=== PATIENT | male | born 1945 | race Caucasian/White ===

== ENCOUNTER → 2023-04-14 15:06 | Outpatient (REF) | payer MEDICARE, OTHER, SELFPAY | LOC: DHCBC MAIN 15:06 | PROVIDERS: ATTENDING PHYSICIAN Internal Medicine; FAMILY PHYSICIAN Family Medicine | DX: I39 Endocarditis and heart valve disorders in diseases classified elsewhere (principal) | CPT/HCPCS: 93306 ==

== ENCOUNTER → 2023-06-15 15:57 | Outpatient (REF) | payer MEDICARE, OTHER, SELFPAY | LOC: RAD 15:57 | PROVIDERS: ATTENDING PHYSICIAN Internal Medicine Rheumatology; FAMILY PHYSICIAN Family Medicine | DX: M35.3 Polymyalgia rheumatica (principal); M60.9 Myositis, unspecified; M79.18 Myalgia, other site | CPT/HCPCS: 71250 ==

== ENCOUNTER → 2023-08-30 16:29 | Outpatient (REF) | payer MEDICARE, OTHER, SELFPAY ==
[2023-08-30 16:54] LABS: % Basophils 0.4 % (0-2); % Eosinophils 1.7 % (0-6); % Immature Granulocytes 0.3 % (0-0.5); % Lymphocytes 30.8 % (20.5-51.1); % Monocytes 9.1 % (1.7-9.3); % Neutrophils 57.7 % (42.2-75.2); Absolute Eosinophils 0.1 10^3/uL (0-0.7); Absolute Lymphocytes 2.4 10^3/uL (1.2-3.4); Absolute Monocytes 0.7 10^3/uL (0.1-0.6); Absolute Neutrophils 4.4 10^3/uL (1.4-6.5); Hematocrit 41.5 % (39.0-52.0); Hemoglobin 14.3 g/dL (13.0-18.0); Mean Corp Hgb Conc. 34.5 g/dL (33.0-37.0); Mean Corpuscular Hgb 33.2 pg (27.0-31.0); Mean Corpuscular Volume 96.3 fL (80.0-94.0); Mean Platelet Volume 9.7 fL (7.4-10.4); Nucleated Red Blood Cells % 0 % (-); Platelet Count 288 10^3/uL (130-400); Red Blood Cell Count 4.31 10^6/uL (4.70-6.10); Red Cell Dist. Width 13.9 % (11.5-14.5); White Blood Cell Count 7.7 10^3/uL (4.8-10.8)
[2023-08-30 17:11] LABS: ALT (SGPT) 31 U/L (0-50); AST (SGOT) 37 U/L (17-59); Albumin 4.7 g/dl (3.5-5.0); Alkaline Phosphatase 66 U/L (38-126); Blood Urea Nitrogen 11 mg/dl (9-20); Calcium 9.4 mg/dl (8.4-10.2); Carbon Dioxide 26 mmol/L (22-30); Chloride 100 mmol/L (98-107); Glucose 93 mg/dl (70-99); Potassium 4.3 mmol/L (3.5-5.1); Sodium 135 mmol/L (135-145); Total Bilirubin 0.7 mg/dl (0.2-1.3); Total Protein 7.3 g/dl (6.3-8.2); eGFR > 60.00
== END ==
LOC: REG 16:29
PROVIDERS: ATTENDING PHYSICIAN Nurse Practitioner Adult Health
DX: R10.84 Generalized abdominal pain (principal); K57.92 Diverticulitis of intestine, part unspecified, without perforation or abscess without bleeding
CPT/HCPCS: 36415; 74177; 80053; 85025; Q9967

== ENCOUNTER → 2023-09-19 08:51 | Outpatient (REF) | payer MEDICARE, OTHER, SELFPAY | LOC: RAD 08:51 | PROVIDERS: ATTENDING PHYSICIAN Family Medicine | DX: R10.84 Generalized abdominal pain (principal) | CPT/HCPCS: 74240; 74248 ==

== ENCOUNTER → 2023-09-23 06:37 | Outpatient (REF) | payer MEDICARE, OTHER, SELFPAY | LOC: RAD 06:37 | PROVIDERS: ATTENDING PHYSICIAN Internal Medicine Rheumatology; FAMILY PHYSICIAN Family Medicine | DX: H50.6 Mechanical strabismus (principal); L02.211 Cutaneous abscess of abdominal wall; M79.18 Myalgia, other site | CPT/HCPCS: 74150 ==

== ENCOUNTER → 2023-11-30 09:12 | Outpatient (REF) | payer MEDICARE, OTHER, SELFPAY | LOC: RCS 09:12 | PROVIDERS: ATTENDING PHYSICIAN Internal Medicine; FAMILY PHYSICIAN Family Medicine | DX: I49.1 Atrial premature depolarization (principal); I49.3 Ventricular premature depolarization | CPT/HCPCS: 93225; 93226 ==

== ENCOUNTER → 2024-01-21 09:34 | Outpatient (REF) | payer MEDICARE, OTHER, SELFPAY ==
[2024-01-21 10:35] LABS: ALT (SGPT) 46 U/L (0-50); AST (SGOT) 28 U/L (17-59); Albumin 4.4 g/dl (3.5-5.0); Alkaline Phosphatase 61 U/L (38-126); Blood Urea Nitrogen 17 mg/dl (9-20); Calcium 9.1 mg/dl (8.4-10.2); Carbon Dioxide 28 mmol/L (22-30); Chloride 101 mmol/L (98-107); Glucose 95 mg/dl (70-99); HDL Cholesterol 48 mg/dl; LDL Cholesterol, Calculated 42 mg/dl; Potassium 4.2 mmol/L (3.5-5.1); Sodium 140 mmol/L (135-145); Total Bilirubin 0.7 mg/dl (0.2-1.3); Total Cholesterol 129 mg/dl (50-199); Total Protein 7.2 g/dl (6.3-8.2); Triglyceride 196 mg/dl (10-149); Very Low Density Lipoprotein 39 mg/dl (0-30); eGFR > 60.00
== END ==
LOC: REG 09:34
PROVIDERS: ATTENDING PHYSICIAN Family Medicine
DX: E78.5 Hyperlipidemia, unspecified (principal); Z13.1 Encounter for screening for diabetes mellitus
CPT/HCPCS: 36415; 80053; 80061

== ENCOUNTER 2024-03-02 15:38 | Emergency (ER) | payer MEDICARE, OTHER, SELFPAY ==
[2024-03-02 15:46] VITALS: BP 152/77
--- NOTE | 2024-03-02 15:59 | ED.GENMED ---
ED Provider Triage
<Alexandr Merritt PA-C - Last Filed: 03/02/24 16:05>
-
Patient seen by provider in Triage?: Seen in Triage
79-year-old male with history of coronary artery disease has stents and bypass surgery on Eliquis. History of A-fib. Presents with chest pain. He notes a substernal pain. He denies any vomiting
Vital signs stable through triage. EKG shows sinus rhythm. Will check labs and chest x-ray.
Seen by provider in triage. Warrants further assessment
History of Present Illness
<Alexandr Merritt PA-C - Last Filed: 03/02/24 16:05>
General
Chief Complaint: Chest Pain
Time Seen by Provider: 03/02/24 20:44
<Valdemar Felix Jr., PA-C - Last Filed: 03/02/24 21:24>
General
Source: patient
Exam Limitations: none
Nursing documentation reviewed up to this point in time: agreed with
History of Present Illness
History of Present Illness:
79-year-old male past medical history of CAD hypertension thyroid disorder presenting to the emergency department today with concerns of chest discomfort across his chest. Has been going on all day no associated symptoms. Does have a history of
costochondritis. Also has a history of fibromyalgia. Put IcyHot throughout on his chest last night thinks he may have had some burn to his chest secondary to this.
Past History
<Alexandr Merritt PA-C - Last Filed: 03/02/24 16:05>
Past History
ED Past Medical History: CAD, Hypercholesterolemia and Other (Hiatal hernia, fibromyalgia)
ED Past Surgical History: Negative Cardiac
Social History
Tobacco: Former smoker
Alcohol: None
Drug: None
Personal:
Living: with family
Employment: Retired
Family History
Family History: Other (Noncontributory)
Review of Systems
<Valdemar Felix Jr., PA-C - Last Filed: 03/02/24 21:24>
Review of Systems
Allergies reviewed?: Yes
All Other Systems: ROS reviewed and negative except as documented in HPI and ROS
Phy Exam
<Valdemar Felix Jr., PA-C - Last Filed: 03/02/24 21:24>
Physical Exam
Physical Exam:
GENERAL: Alert , in no apparent distress
EYE: pupils equal and reactive
NECK: Supple, no significant adenopathy.
ENT: o/p clr, mmm.
CARDIAC: Redness and irritation to the chest wall no fluctuance or induration regular rate and rhythm .
LUNGS: Clear breath sounds bilaterally, no acute respiratory distress, no wheezes/rales/rhonchi
ABDOMEN: Soft, without focal tenderness, no r/g, no cvat
NEUROLOGICAL: Alert and oriented, no focal neuro deficits
SKIN: Warm and dry, skin intact.
MUSCULOSKELETAL: No edema, well perfused.
PSYCH: Normal and appropriate interaction.
Scores
<aVldemar Felix Jr., PA-C - Last Filed: 03/02/24 21:24>
Heart Score for Chest Pain Patients
STEMI patient?: No
History: Slightly or Non-Suspicious
ECG: Normal
Age: >/= 65 years
Risk Factors: >/= 3 Risk Factors or History of CAD
Troponin: </= Normal Limit
Heart Score for Chest Pain Patients: 4
Heart Score Risk: 20.3% MACE over next 6 weeks
Course
<Alexandr Merritt PA-C - Last Filed: 03/02/24 16:05>
Orders/Labs/Results
Orders:
Orders
03/02/24 15:39
Electrocardiogram (*1) Urgent
Reason for Study: Chest Pain
EKG- Treatment ONCE
03/02/24 15:59
CR Chest - 2 Views Urgent
Comment:
Reason For Exam: chest pain
03/02/24 16:11
Complete Blood Count/With Diff Urgent
Comprehensive Metabolic Panel Urgent
Lipase Urgent
Troponin I Urgent
03/02/24 19:11
Troponin I Urgent
Abnormal Lab Results
03/02/24
16:11
RBC 4.02 L 10^6/uL
(4.70-6.10)
MCV 97.3 H fL
(80.0-94.0)
MCH 33.1 H pg
(27.0-31.0)
Abs Immat Gran (auto) 0.1 H 10^3/uL
(0-0.05)
Absolute Neuts (auto) 7.6 H 10^3/uL
(1.4-6.5)
Absolute Monos (auto) 0.7 H 10^3/uL
(0.1-0.6)
Lymphocytes % 18.0 L %
(20.5-51.1)
Glucose 116 H mg/dl
(70-99)
03/02/24 16:11
03/02/24 16:11
Vital Signs
Initial and Last Documented VS:
Initial Vital Signs
Temp Pulse Resp BP Pulse Ox
97.8 F 92 18 152/77 98
03/02/24 15:46 03/02/24 15:46 03/02/24 15:46 03/02/24 15:46 03/02/24 15:46
Last Documented Vital Signs
Temp Pulse Resp BP Pulse Ox
97.8 F 92 18 152/77 98
03/02/24 15:46 03/02/24 15:46 03/02/24 15:46 03/02/24 15:46 03/02/24 15:46
<Valdemar Felix Jr., PA-C - Last Filed: 03/02/24 21:24>
Orders/Labs/Results
Orders:
Orders
03/02/24 15:39
Electrocardiogram (*1) Urgent
Reason for Study: Chest Pain
EKG- Treatment ONCE
03/02/24 15:59
CR Chest - 2 Views Urgent
Comment:
Reason For Exam: chest pain
03/02/24 16:11
Complete Blood Count/With Diff Urgent
Comprehensive Metabolic Panel Urgent
Lipase Urgent
Troponin I Urgent
03/02/24 19:11
Troponin I Urgent
Abnormal Lab Results
03/02/24
16:11
RBC 4.02 L 10^6/uL
(4.70-6.10)
MCV 97.3 H fL
(80.0-94.0)
MCH 33.1 H pg
(27.0-31.0)
Abs Immat Gran (auto) 0.1 H 10^3/uL
(0-0.05)
Absolute Neuts (auto) 7.6 H 10^3/uL
(1.4-6.5)
Absolute Monos (auto) 0.7 H 10^3/uL
(0.1-0.6)
Lymphocytes % 18.0 L %
(20.5-51.1)
Glucose 116 H mg/dl
(70-99)
03/02/24 16:11
03/02/24 16:11
Vital Signs
Initial and Last Documented VS:
Initial Vital Signs
Temp Pulse Resp BP Pulse Ox
97.8 F 92 18 152/77 98
03/02/24 15:46 03/02/24 15:46 03/02/24 15:46 03/02/24 15:46 03/02/24 15:46
Last Documented Vital Signs
Temp Pulse Resp BP Pulse Ox
97.8 F 92 18 152/77 98
03/02/24 15:46 03/02/24 15:46 03/02/24 15:46 03/02/24 15:46 03/02/24 15:46
<Valdemar Felix Jr., PA-C - Last Filed: 03/02/24 21:24>
MDM/Problems Addressed
MDM/Problems Addressed:
79-year-old male presenting to the emergency department today with concerns of chest pain throughout the day today. Upon arrival here blood pressure slightly elevated otherwise vital signs are normal. Labs unremarkable troponin negative twice EKG
without emergent changes chest x-ray normal. On assessment patient does have some redness and irritation to the chest wall. Patient claims he was a large amount of IcyHot last night caused a mild burn. This could be explaining his symptoms. No
signs of emergent process advised her close outpatient follow-up. Return precautions given.
<Valdemar Felix Jr., PA-C - Last Filed: 03/02/24 21:24>
*Critical Care Note
Total Time (30-74mins, 75-104mins- exclusive of procedures): Not Applicable
ED Attending Note
<Alexandr Merritt PA-C - Last Filed: 03/02/24 16:05>
-
Portions of this chart may have been created with voice recognition software.� Occasional wrong word or��sound alike� substitutions may have occurred due to the inherent limitations of voice recognition software.
Discharge Plan
Departure
Patient Disposition: Home (Routine Discharge)
Date of Disposition: 03/02/24
Time of Disposition: 21:06
Patient with high blood pressure during this ER visit?: No
Condition: Good
Covid-19: Not Applicable
Discharge Problem:
Chest pain
Instructions: Chest Pain CBC Follow Up
Prescriptions:
No Action
loratadine 10 MG tablet
10 mg PO PRN PRN (Reason: ALLERGIES)
rosuvastatin 5 MG tablet
2.5 mg PO DAILY
aspirin 81 MG tablet,delayed release (DR/EC)
81 mg PO DAILY
alprazolam [Xanax] 0.25 MG tablet
0.25 mg PO DAILY PRN (Reason: ANXIETY)
docosahexaenoic acid-epa 1 CAP capsule
1 cap PO DAILY
escitalopram oxalate 10 MG tablet
10 mg PO DAILY Qty: 30 0RF
cyclobenzaprine 10 MG tablet
10 mg PO TIDPRN PRN (Reason: severe muscle pain) Qty: 30 0RF
Rx Instructions:
Can cause sleepiness. Do not drive while taking this
Referrals:
Lars Padilla Jr., DO [Family Provider] -
Activity Restrictions/Additional Instructions:
You came to the emergency department today with concerns of chest discomfort. Here you had a reassuring assessment. Please follow closely as an outpatient. Return for any worsening, new or concerning symptoms.
Interventions
Interventions:
*Risk Screen - Suicide Last Done: 03/02/24 15:46
*General Assessment Last Done: 03/02/24 15:46
*Neglect/Abuse Screening Last Done: 03/02/24 15:46
*ED COVID-19 Vaccine History Last Done: 03/02/24 15:46
Discharge Date and Time
Print Language: MAORI
[2024-03-02 16:31] LABS: % Basophils 0.1 % (0-2); % Eosinophils 0.1 % (0-6); % Immature Granulocytes 0.5 % (0-0.5); % Monocytes 6.5 % (1.7-9.3); % Neutrophils 74.8 % (42.2-75.2); Absolute Immature Granulocytes 0.1 10^3/uL (0-0.05); Absolute Lymphocytes 1.8 10^3/uL (1.2-3.4); Absolute Monocytes 0.7 10^3/uL (0.1-0.6); Absolute Neutrophils 7.6 10^3/uL (1.4-6.5); Hematocrit 39.1 % (39.0-52.0); Hemoglobin 13.3 g/dL (13.0-18.0); Mean Corpuscular Hgb 33.1 pg (27.0-31.0); Mean Corpuscular Volume 97.3 fL (80.0-94.0); Mean Platelet Volume 9.9 fL (7.4-10.4); Nucleated Red Blood Cells % 0 % (-); Platelet Count 297 10^3/uL (130-400); Red Blood Cell Count 4.02 10^6/uL (4.70-6.10); Red Cell Dist. Width 12.6 % (11.5-14.5); White Blood Cell Count 10.1 10^3/uL (4.8-10.8)
[2024-03-02 16:43] LABS: ALT (SGPT) 24 U/L (0-50); AST (SGOT) 29 U/L (17-59); Albumin 4.4 g/dl (3.5-5.0); Alkaline Phosphatase 72 U/L (38-126); Blood Urea Nitrogen 16 mg/dl (9-20); Calcium 9.2 mg/dl (8.4-10.2); Carbon Dioxide 23 mmol/L (22-30); Chloride 101 mmol/L (98-107); Glucose 116 mg/dl (70-99); Potassium 4.1 mmol/L (3.5-5.1); Sodium 137 mmol/L (135-145); Total Bilirubin 0.3 mg/dl (0.2-1.3); eGFR > 60.00
[2024-03-02 16:45] LABS: Lipase 113 U/L (23-300)
[2024-03-02 16:49] LABS: Troponin I < 0.012 ng/ml
[2024-03-02 19:49] LABS: Troponin I < 0.012 ng/ml
== END 2024-03-02 21:36 | disposition home or self-care (01) ==
LOC: EMR 15:38
PROVIDERS: Physician Assistant; EMERGENCY PHYSICIAN Student in an Organized Health Care Education/Training Program; FAMILY PHYSICIAN Family Medicine
DX: R07.89 Other chest pain (principal); E78.00 Pure hypercholesterolemia, unspecified; I25.10 Atherosclerotic heart disease of native coronary artery without angina pectoris; I10 Essential (primary) hypertension; E07.9 Disorder of thyroid, unspecified; Z87.891 Personal history of nicotine dependence
CPT/HCPCS: 99285; 71046; 80053; 83690; 84484; 85025; 93005

== ENCOUNTER → 2024-03-24 07:08 | Outpatient (REF) | payer MEDICARE, OTHER, SELFPAY ==
[2024-03-24 08:14] LABS: % Basophils 0.4 % (0-2); % Eosinophils 2.4 % (0-6); % Immature Granulocytes 0.4 % (0-0.5); % Lymphocytes 31.9 % (20.5-51.1); % Monocytes 11.8 % (1.7-9.3); % Neutrophils 53.1 % (42.2-75.2); Absolute Eosinophils 0.2 10^3/uL (0-0.7); Absolute Lymphocytes 2.3 10^3/uL (1.2-3.4); Absolute Monocytes 0.9 10^3/uL (0.1-0.6); Absolute Neutrophils 3.8 10^3/uL (1.4-6.5); Hematocrit 41.9 % (39.0-52.0); Hemoglobin 13.9 g/dL (13.0-18.0); Mean Corp Hgb Conc. 33.2 g/dL (33.0-37.0); Mean Corpuscular Hgb 32.7 pg (27.0-31.0); Mean Corpuscular Volume 98.6 fL (80.0-94.0); Mean Platelet Volume 10.5 fL (7.4-10.4); Nucleated Red Blood Cells % 0 % (-); Platelet Count 197 10^3/uL (130-400); Red Blood Cell Count 4.25 10^6/uL (4.70-6.10); Red Cell Dist. Width 13.2 % (11.5-14.5); White Blood Cell Count 7.2 10^3/uL (4.8-10.8)
[2024-03-24 08:20] LABS: Erythrocyte Sed Rate 21 mm/hour (0-20)
[2024-03-24 08:43] LABS: C-Reactive Protein < 5.00 mg/L (0.0-10.00)
[2024-03-24 08:44] LABS: ALT (SGPT) 22 U/L (0-50); AST (SGOT) 29 U/L (17-59); Albumin 4.9 g/dl (3.5-5.0); Alkaline Phosphatase 60 U/L (38-126); Blood Urea Nitrogen 13 mg/dl (9-20); Calcium 9.1 mg/dl (8.4-10.2); Carbon Dioxide 25 mmol/L (22-30); Chloride 100 mmol/L (98-107); Creatine Phosphokinase 59 U/L (55-170); Glucose 98 mg/dl (70-99); HDL Cholesterol 54 mg/dl; LDL Cholesterol, Calculated 39 mg/dl; Potassium 4.2 mmol/L (3.5-5.1); Sodium 138 mmol/L (135-145); Total Bilirubin 0.8 mg/dl (0.2-1.3); Total Cholesterol 112 mg/dl (50-199); Total Protein 7.8 g/dl (6.3-8.2); Triglyceride 97 mg/dl (10-149); Very Low Density Lipoprotein 19 mg/dl (0-30); eGFR > 60.00
[2024-03-24 09:12] LABS: TSH Reflex To Free T4 5.26 uIU/ml (0.47-4.68)
[2024-03-24 09:42] LABS: Free T4 1.05 ng/dl (0.78-2.19)
[2024-03-27 01:08] LABS: Aldolase 2.3 U/L (1.2-7.6)
== END ==
LOC: REG 07:08
PROVIDERS: ATTENDING PHYSICIAN Physician Assistant; FAMILY PHYSICIAN Family Medicine
DX: E78.5 Hyperlipidemia, unspecified (principal); R53.83 Other fatigue; Z13.29 Encounter for screening for other suspected endocrine disorder; M47.812 Spondylosis without myelopathy or radiculopathy, cervical region; M62.9 Disorder of muscle, unspecified; M79.7 Fibromyalgia; M94.0 Chondrocostal junction syndrome [Tietze]; Z13.1 Encounter for screening for diabetes mellitus; Z12.5 Encounter for screening for malignant neoplasm of prostate; N40.1 Benign prostatic hyperplasia with lower urinary tract symptoms; R39.12 Poor urinary stream; R39.14 Feeling of incomplete bladder emptying; R39.11 Hesitancy of micturition; Z79.69 Long term (current) use of other immunomodulators and immunosuppressants
CPT/HCPCS: 36415; 80053; 80061; 82085; 82550; 84153; 84154; 84439; 84443; 85025; 85652; 86140

== ENCOUNTER → 2024-03-26 14:40 | Outpatient (REF) | payer MEDICARE, OTHER, SELFPAY | LOC: HWRCS 14:40 | PROVIDERS: ATTENDING PHYSICIAN Internal Medicine; FAMILY PHYSICIAN Family Medicine | DX: I25.10 Atherosclerotic heart disease of native coronary artery without angina pectoris (principal); I49.3 Ventricular premature depolarization; I34.0 Nonrheumatic mitral (valve) insufficiency; R06.02 Shortness of breath | CPT/HCPCS: 93306 ==

== ENCOUNTER → 2024-04-10 12:35 | Outpatient (REF) | payer MEDICARE, OTHER, SELFPAY ==
[2024-04-10 14:46] LABS: Free T4 0.81 ng/dl (0.78-2.19)
[2024-04-12 12:05] LABS: Thyroglobulin Antibodies <1.5 IU/mL (0.0-4.0); Thyroid Peroxidase Ab (TPO) <0.3 IU/mL (0.0-9.0)
[2024-04-12 14:10] LABS: TSH Receptor Antibody <1.10 IU/L (<=1.75)
== END ==
LOC: REG 12:35
PROVIDERS: ATTENDING PHYSICIAN Internal Medicine Rheumatology; FAMILY PHYSICIAN Family Medicine
DX: E06.9 Thyroiditis, unspecified (principal)
CPT/HCPCS: 36415; 83520; 84439; 84443; 86376; 86800

== ENCOUNTER → 2024-04-13 09:13 | Outpatient (REF) | payer MEDICARE, OTHER, SELFPAY | LOC: HWRAD 09:13 | PROVIDERS: ATTENDING PHYSICIAN Internal Medicine Rheumatology; FAMILY PHYSICIAN Family Medicine | DX: D34 Benign neoplasm of thyroid gland (principal) | CPT/HCPCS: 76536 ==

== ENCOUNTER → 2024-04-30 07:40 | Outpatient (REF) | payer MEDICARE, OTHER, SELFPAY ==
--- NOTE | 2024-04-30 14:16 | CARDSERVLU ---
Echocardiogram with [facility] completed after protocol screening completed. Allergies verified.
Patent IV site: __Rt wrist___
IV site flushed with 0.9% NaCl pre and post administration.
Diluted bolus method utilized to enhance visualization of ventricular marie.
Total volume given: _3.0___ mL
Patient tolerated all procedures well without complications.
== END ==
LOC: RCS 07:40
PROVIDERS: ATTENDING PHYSICIAN Internal Medicine; FAMILY PHYSICIAN Family Medicine
DX: I25.10 Atherosclerotic heart disease of native coronary artery without angina pectoris (principal); I10 Essential (primary) hypertension; I25.5 Ischemic cardiomyopathy
CPT/HCPCS: 93308; 93321; 93325; Q9950

== ENCOUNTER → 2024-05-07 10:33 | Outpatient (REF) | payer MEDICARE, OTHER, SELFPAY | LOC: RAD 10:33 | PROVIDERS: ATTENDING PHYSICIAN Nurse Practitioner Adult Health | DX: M54.42 Lumbago with sciatica, left side (principal) | CPT/HCPCS: 72110 ==

== ENCOUNTER → 2024-06-08 10:47 | Outpatient (REF) | payer MEDICARE, OTHER, SELFPAY | LOC: RAD 10:47 | PROVIDERS: ATTENDING PHYSICIAN Family Medicine | DX: M25.562 Pain in left knee (principal) | CPT/HCPCS: 73564 ==

== ENCOUNTER 2024-06-18 09:53 | Outpatient (RCR) | payer MEDICARE, OTHER, SELFPAY | END 2024-06-18 23:59 | disposition home or self-care (01) | LOC: RPT 09:53 | PROVIDERS: ATTENDING PHYSICIAN Nurse Practitioner Adult Health | DX: M54.41 Lumbago with sciatica, right side (principal); Z73.6 Limitation of activities due to disability; M51.362 Other intervertebral disc degeneration, lumbar region with discogenic back pain and lower extremity pain; R26.89 Other abnormalities of gait and mobility; M79.7 Fibromyalgia | CPT/HCPCS: 97010; 97110; 97112; 97163 ==

== ENCOUNTER → 2024-11-15 13:06 | Outpatient (REF) | payer MEDICARE, OTHER, SELFPAY ==
[2024-11-15 13:42] LABS: Urine Character Clear (Clear)
[2024-11-15 13:44] LABS: Hematocrit 39.6 % (39.0-52.0); Hemoglobin 13.3 g/dL (13.0-18.0); Mean Corp Hgb Conc. 33.6 g/dL (33.0-37.0); Mean Corpuscular Volume 96.8 fL (80.0-94.0); Nucleated Red Blood Cells % 0 % (-); Platelet Count 251 10^3/uL (130-400); Red Cell Dist. Width 12.8 % (11.5-14.5)
[2024-11-15 13:54] LABS: Albumin 4.3 g/dl (3.5-5.0); Blood Urea Nitrogen 12 mg/dl (9-20); Carbon Dioxide 27 mmol/L (22-30); Total Protein 7.3 g/dl (6.3-8.2); eGFR > 60.00
[2024-11-15 14:27] LABS: ALT (SGPT) 24 U/L (0-50); AST (SGOT) 31 U/L (17-59); Alkaline Phosphatase 66 U/L (38-126); Calcium 9.2 mg/dl (8.4-10.2); Chloride 104 mmol/L (98-107); Glucose 92 mg/dl (70-99); Lipase 163 U/L (23-300); Potassium 3.9 mmol/L (3.5-5.1); Sodium 136 mmol/L (135-145)
== END ==
LOC: RAD 13:06
PROVIDERS: ATTENDING PHYSICIAN Family Medicine
DX: R10.30 Lower abdominal pain, unspecified (principal); K57.90 Diverticulosis of intestine, part unspecified, without perforation or abscess without bleeding
CPT/HCPCS: 36415; 74176; 80053; 81003; 83690; 85025

== ENCOUNTER → 2025-01-25 14:42 | Outpatient (REF) | payer MEDICARE, OTHER, SELFPAY | LOC: REG 14:42 | PROVIDERS: ATTENDING PHYSICIAN Internal Medicine Rheumatology; FAMILY PHYSICIAN Family Medicine | DX: M54.50 Low back pain, unspecified (principal) | CPT/HCPCS: 72110 ==

== ENCOUNTER 2025-02-18 03:08 | Emergency (ER) | payer MEDICARE, OTHER, SELFPAY ==
[2025-02-18 03:11] VITALS: BP 164/82
--- NOTE | 2025-02-18 04:28 | ED.MUSCINJ ---
HPI-Injury
General
Chief Complaint: Musculo-Skeletal Complaint
Source: patient and spouse
Exam Limitations: none
Time Seen by Provider: 02/18/25 04:05
Nursing documentation reviewed up to this point in time: agreed with
History of Present Illness-Injury
Is this injury a work related problem?: No
Is pt an associate of [facility]?: No
Initial Injury comments:
80-year-old male right sided rib pain onset earlier today after being pulled by his dog, suffers from fibromyalgia, PMR, osteoarthritis costochondritis had been on steroids, took some Tylenol Percocet without much relief, no direct trauma, does hurt
to take a deep breath he states also hurts to push on his ribs,
Past History
Past History
ED Past Medical History: CAD, Hypercholesterolemia and Other (Hiatal hernia, fibromyalgia PMR costochondritis)
ED Past Surgical History: Negative Cardiac
Social History
Tobacco: Former smoker
Alcohol: None
Drug: None
Personal:
Living: with family
Employment: Retired
Family History
Family History: Other (Noncontributory)
Review of Systems
Review of Systems
All Other Systems: Not applicable
Constitutional: Denies fever or fatigue
Respiratory: Reports trouble breathing; Denies cough
Cardiac: Reports chest pain (Chest wall pain)
ABD/GI: Reports no symptoms
Musculoskeletal: Reports muscle pain and muscle stiffness
Phy Exam
Physical Exam
Physical Exam:
Physical Exam
General: no apparent distress, not acutely ill
Neck: No jaundice
Heart: Regular, point tender over the right costal margin
Lungs: no acute respiratory distress. clear bilaterally
Abdomen: Soft not
Neuro: alert and oriented. no focal neurological deficits
Skin: no rash
Psychiatric: well kept. interactive and cooperative
Extremities: no edema. no calf tenderness.
Injury Course
Orders/Labs/Results
Orders:
Orders
02/18/25 04:12
Diazepam [Valium] 5 mg PO NOW STA
Ribs, Right 3 View W/PA Chest [CR Ribs-right 3 Vw W/pa Chest*] Urgent
Comment:
Reason For Exam: pain
02/18/25 05:34
Oxycodone [Roxicodone] 5 mg PO NOW STA
MDM/Problems Addressed
Differential Diagnosis Includes:
Muscle strain contusion costochondritis doubt rib fracture lower pneumo by history and physical
Compression fracture review possibility due to chronic steroid use
MDM/Problems Addressed:
Rib pain,
Chronic conditions affecting care:
Chronic pain syndrome
Acute Exacerbation and/or Progression of Chronic Illness:
Chronic pain syndrome
*Radiology
Radiology exam reviewed: preliminary read by ED provider
*Pulse Oximetry
SaO2: 97
Oxygen Mode of Delivery: Room air
Patient hypoxic: no
*Critical Care Note
Total Time (30-74mins, 75-104mins- exclusive of procedures): Not Applicable
Update Note
Update Note:
Update, x-ray noted no obvious fracture or pneumo, last Percocet was before midnight will redose him
ED Attending Note
-
Portions of this chart may have been created with voice recognition software.� Occasional wrong word or��sound alike� substitutions may have occurred due to the inherent limitations of voice recognition software.
Discharge Plan
Departure
Patient Disposition: Home (Routine Discharge)
Date of Disposition: 02/18/25
Time of Disposition: 05:37
Patient with high blood pressure during this ER visit?: No
Condition: Good
Covid-19: Not Applicable
Discharge Problem:
Chest wall muscle strain
Instructions: Muscle Strain (DC)
Prescriptions:
New
diazepam [Valium] 5 mg tablet
5 mg PO BID PRN (Reason: muscle spasm) Qty: 10 0RF
No Action
loratadine 10 MG tablet
10 mg PO PRN PRN (Reason: ALLERGIES)
rosuvastatin 5 MG tablet
2.5 mg PO DAILY
aspirin 81 MG tablet,delayed release (DR/EC)
81 mg PO DAILY
alprazolam [Xanax] 0.25 MG tablet
0.25 mg PO DAILY PRN (Reason: ANXIETY)
docosahexaenoic acid-epa 1 CAP capsule
1 cap PO DAILY
escitalopram oxalate 10 MG tablet
10 mg PO DAILY Qty: 30 0RF
cyclobenzaprine 10 MG tablet
10 mg PO TIDPRN PRN (Reason: severe muscle pain) Qty: 30 0RF
Rx Instructions:
Can cause sleepiness. Do not drive while taking this
Referrals:
Lars Padilla Jr., [Family Provider, Internal Medicine] - Next open appointment
Interventions
Interventions:
*Risk Screen - Suicide (C-SSRS) Last Done: 02/18/25 03:11
Discharge Date and Time
Print Language: HUNGARIAN
[2025-02-18] MEDS: VALIUM 5 MG PO (04:45)
[2025-02-18] MEDS: ROXICODONE 5 MG PO (05:52)
[2025-02-18 05:53] VITALS: BP 147/82
== END 2025-02-18 06:07 | disposition home or self-care (01) ==
LOC: EMR 03:08
PROVIDERS: EMERGENCY PHYSICIAN Emergency Medicine; FAMILY PHYSICIAN Family Medicine
DX: S29.011A Strain of muscle and tendon of front wall of thorax, initial encounter (principal); X58.XXXA Exposure to other specified factors, initial encounter; Y93.K1 Activity, walking an animal; M79.7 Fibromyalgia; M35.3 Polymyalgia rheumatica; M19.90 Unspecified osteoarthritis, unspecified site; I25.10 Atherosclerotic heart disease of native coronary artery without angina pectoris; E78.00 Pure hypercholesterolemia, unspecified; K44.9 Diaphragmatic hernia without obstruction or gangrene; I10 Essential (primary) hypertension; K21.9 Gastro-esophageal reflux disease without esophagitis; E05.00 Thyrotoxicosis with diffuse goiter without thyrotoxic crisis or storm; M94.0 Chondrocostal junction syndrome [Tietze]; G89.4 Chronic pain syndrome; I25.2 Old myocardial infarction; Z87.891 Personal history of nicotine dependence; Z95.5 Presence of coronary angioplasty implant and graft
CPT/HCPCS: 99283; 71101